=== PATIENT | female | born 1960 | race Caucasian/White ===

== ENCOUNTER 2016-12-13 09:43 | Emergency (ER) | payer MEDICAID ==
[~2016-12-13] VITALS: Ht 162.6 cm; Wt 58.5 kg
[~2016-12-13 09:43] MED LIST: ACYC-113 PO; ASPI-515 PO; CIPR500T87 PO; CLON0.1T PO; CYCL-259 PO; DOCU100C24 PO; FOLI-17 PO; HYDR-3237 PO; HYDR-3240 PO; HYDR-3276 PO; LEVE100020 PO; LEVE250T28 PO; LEVE500T53 PO; LEVE500T8 PO; LIPA1CAP PO; LORA-446 PO; LORA2TAB99; MECL-76 PO; METO50TA82 PO; METR500T PO; SIMV5TAB PO; [UNRECOGNIZED DRUG - OTHER] PO; [UNRECOGNIZED DRUG - REMARK]
[2016-12-13] MEDS ORDERED: METF500T4 PO (09:54)
[2016-12-13] MEDS ORDERED: OXYC15TA PO (10:00)
[2016-12-13] MEDS ORDERED: SODIUM CHLORIDE 0.9% 1,000ML IVBOLUS ONE (10:00)
[2016-12-13] MEDS ORDERED: DIAZEPAM 5 MG/ML, 2ML IVPush ONE (10:00)
[2016-12-13] MEDS ORDERED: SODIUM CHLORIDE FLUSH 10ML SYR IVF ONE (10:00)
[2016-12-13] MEDS ORDERED: DIAZEPAM 5 MG TABLET ONE (10:14)
[2016-12-13 10:29] LABS: HEMOGLOBIN 15.8 g/dL (11.7-16.4); WHITE BLOOD COUNT 5.2 x10^3/uL (3.4-10)
[2016-12-13 10:33] LABS: BLOOD UREA NITROGEN 12 mg/dL (7-18)
[2016-12-13] MEDS ORDERED: HYDROcodone/APAP 5/325 TABLET ONE (13:35)
[2016-12-13] MEDS ORDERED: HYDROcodone/APAP 5/325 TABLET PO ONE (14:00)
[2016-12-13 14:21] VITALS: BP_DIAS 112
[2016-12-13 15:17] VITALS: BP_SYST 158
== END 2016-12-13 15:20 | disposition home or self-care (01) ==
LOC: EDBD → MERGE 09:43 → ED 10:16
DX: S52.572A Other intraarticular fracture of lower end of left radius, initial encounter for closed fracture (principal); F10.120 Alcohol abuse with intoxication, uncomplicated; X58.XXXA Exposure to other specified factors, initial encounter; Y93.89 Activity, other specified; Y99.8 Other external cause status; Y92.89 Other specified places as the place of occurrence of the external cause
CPT/HCPCS: 29125; 36415; 70450; 71010; 73110; 80048; 80307; 81003; 82040; 85025; 93005; 96361; 96374; 99285; J3360; J7030